=== PATIENT | male | born 1980 | race Two or more races ===

== ENCOUNTER 2022-01-21 07:35 | Emergency (ER) | payer SELFPAY ==
[~2022-01-21] VITALS: Ht 170.2 cm; Wt 63.5 kg
[2022-01-21 09:15] VITALS: BP 132/81
[2022-01-21] MEDS ORDERED: IBUPROFEN 600 MG TAB PO ONE (09:15)
== END 2022-01-21 09:18 ==
LOC: ER 07:35
DX: S93.401A Sprain of unspecified ligament of right ankle, initial encounter (principal); V43.52XA Car driver injured in collision with other type car in traffic accident, initial encounter; Y93.89 Activity, other specified; Y92.410 Unspecified street and highway as the place of occurrence of the external cause; Y99.8 Other external cause status
CPT/HCPCS: 73610

== ENCOUNTER 2022-03-25 13:42 | Emergency (ER) | payer SELFPAY ==
[~2022-03-25] VITALS: Ht 165.1 cm; Wt 70.1 kg
[2022-03-25 15:21] VITALS: BP 139/101
[2022-03-25] MEDS ORDERED: methylPREDNISolone SOD SUCC 125 MG/2 ML VL ONE (15:27)
[2022-03-25] MEDS ORDERED: cefTRIAXone SOD 1,000 MG VL IM ONE (15:30)
[2022-03-25] MEDS ORDERED: methylPREDNISolone SOD SUCC 125 MG/2 ML VL IM ONE (15:30)
== END 2022-03-25 15:50 | disposition home or self-care (01) ==
LOC: ER 13:42
DX: T78.40XA Allergy, unspecified, initial encounter (principal); E11.9 Type 2 diabetes mellitus without complications; X58.XXXA Exposure to other specified factors, initial encounter
CPT/HCPCS: 96372; 99284; J0696; J2930

== ENCOUNTER 2022-03-26 14:21 | Emergency (ER) | payer SELFPAY ==
[~2022-03-26] VITALS: Ht 167.6 cm; Wt 63.5 kg
[2022-03-26] MEDS ORDERED: methylPREDNISolone SOD SUCC 125 MG/2 ML VL IV ONE (15:15)
[2022-03-26] MEDS ORDERED: cefTRIAXone 1GM/50ML D5W 50 ML IV ONE (15:15)
[2022-03-26 15:41] VITALS: BP 131/81
[2022-03-26 16:09] LABS: Alcohol, Urine < 3.0 mg/dL (0-10); Amphetamine Screen, Urine NEGATIVE (NEGATIVE); Barbiturate Scree,Urine NEGATIVE (NEGATIVE); Benzodiazephine Screen, Urine NEGATIVE (NEGATIVE); Cannabinoid Screen, Urine POSITIVE (NEGATIVE); Opiate Scree,Urine NEGATIVE (NEGATIVE); Phencyclidine Screen, Urine NEGATIVE (NEGATIVE)
[2022-03-26 16:15] LABS: Cocaine Screen, Urine NEGATIVE (NEGATIVE)
[2022-03-27] MEDS ORDERED: CEPH500C PO (15:19)
[2022-03-27] MEDS ORDERED: NAPR500T31 PO (15:22)
== END 2022-03-26 16:33 | disposition home or self-care (01) ==
LOC: ER 14:21
DX: S41.151A Open bite of right upper arm, initial encounter (principal); F12.10 Cannabis abuse, uncomplicated; W57.XXXA Bitten or stung by nonvenomous insect and other nonvenomous arthropods, initial encounter; Y93.89 Activity, other specified; Y92.9 Unspecified place or not applicable; Y99.8 Other external cause status
CPT/HCPCS: 80307; 96365; 96375; 99284; J0696; J2930

== ENCOUNTER 2022-03-27 13:50 | Emergency (ER) | payer SELFPAY ==
[~2022-03-27] VITALS: Ht 170.2 cm; Wt 63.5 kg
[2022-03-27 14:09] VITALS: BP 136/87
[2022-03-27] MEDS ORDERED: cefTRIAXone 1GM/50ML D5W 50 ML IV ONE (15:15)
[2022-03-27] MEDS ORDERED: CEPH500C PO (15:19)
[2022-03-27] MEDS ORDERED: NAPR500T31 PO (15:22)
== END 2022-03-27 15:39 | disposition home or self-care (01) ==
LOC: ER 13:50
DX: T78.40XD Allergy, unspecified, subsequent encounter (principal); I89.1 Lymphangitis; F12.10 Cannabis abuse, uncomplicated; X58.XXXD Exposure to other specified factors, subsequent encounter
CPT/HCPCS: 96374; 99283; J0696

== ENCOUNTER 2023-10-28 09:30 | Emergency (ER) | payer SELFPAY ==
[~2023-10-28] VITALS: Ht 160 cm; Wt 73.4 kg
[~2023-10-28 09:30] MED LIST: CEPH500C PO; NAPR-746 PO
[2023-10-28 09:35] VITALS: BP 139/84
[2023-10-28] MEDS ORDERED: AUG875T PO (10:51)
[2023-10-28 11:15] VITALS: PULSE 69; RESP 18; O2SAT 98
[2023-10-28] MEDS ORDERED: HYDROcodone-ACET 5/325MG TAB PO ONE (11:15)
== END 2023-10-28 11:17 | disposition home or self-care (01) ==
LOC: ER 09:30
DX: M79.671 Pain in right foot (principal); F12.10 Cannabis abuse, uncomplicated
CPT/HCPCS: 93971

== ENCOUNTER 2023-11-10 13:45 | Emergency (ER) | payer MEDICAID ==
[~2023-11-10] VITALS: Ht 167.6 cm; Wt 70.0 kg
[~2023-11-10 13:45] MED LIST changes: +AUG875T PO
[2023-11-10 14:31] VITALS: BP 131/90; PULSE 80; RESP 16; O2SAT 99
== END 2023-11-10 16:39 | disposition left against medical advice (07) ==
LOC: ER 13:45
DX: M79.671 Pain in right foot (principal); Z53.21 Procedure and treatment not carried out due to patient leaving prior to being seen by health care provider

== ENCOUNTER 2023-12-02 14:23 | Emergency (ER) | payer MEDICAID ==
[~2023-12-02] VITALS: Ht 162.6 cm; Wt 72.9 kg
[2023-12-02] MEDS ORDERED: HYDROcodone-ACET 10/325MG TAB PO ONE (15:15)
[2023-12-02] MEDS ORDERED: IBUP-1455 PO (16:27)
[2023-12-02] MEDS ORDERED: HYDR-4902 PO (16:27)
[2023-12-02 16:50] VITALS: BP 176/99; PULSE 85; RESP 20; TEMP 98.7; O2SAT 97
== END 2023-12-02 16:54 | disposition home or self-care (01) ==
LOC: ER 14:23
DX: S92.32 Fracture of second metatarsal bone (principal); S92.33 Fracture of third metatarsal bone; Z79.2 Long term (current) use of antibiotics; Z79.899 Other long term (current) drug therapy; X58.XXXD Exposure to other specified factors, subsequent encounter
CPT/HCPCS: 73630; 93971

== ENCOUNTER 2023-12-21 13:31 | Emergency (ER) | payer MEDICAID ==
[~2023-12-21] VITALS: Ht 167.6 cm; Wt 74.2 kg
[~2023-12-21 13:31] MED LIST changes: +HYDR-4902 PO; +IBUP-1455 PO
[2023-12-21 14:39] VITALS: BP 137/87; PULSE 84; RESP 20; TEMP 97; O2SAT 97
[2023-12-21] MEDS ORDERED: MELO7.5T7 PO (15:56)
[2023-12-21] MEDS: KETOROLAC TROMETH 60MG/2ML VIAL IM ONE (16:10)
== END 2023-12-21 16:21 | disposition home or self-care (01) ==
LOC: ER 13:31
DX: M79.671 Pain in right foot (principal); F12.10 Cannabis abuse, uncomplicated; F10.10 Alcohol abuse, uncomplicated
CPT/HCPCS: 73630; 96372; 99283; J1885

== ENCOUNTER 2024-01-31 10:09 | Inpatient (IN) | payer MEDICAID ==
[~2024-01-31] VITALS: Ht 170.2 cm; Wt 77.1 kg
[~2024-01-31 10:09] MED LIST changes: +MELO7.5T7 PO
[2024-01-31 11:23] LABS: Basophils # (auto) 0 10 ^3/uL (0-0.2); Basophils % (auto) 0.3 % (0.0-2.0); Eosinophils # (auto) 0.1 10 ^3/uL (0-0.8); Eosinophils % (auto) 1.3 % (0.0-7.0); Hematocrit 44.7 % (41.0-53.0); Hemoglobin 15.2 g/dL (13.5-17.5); Lymphocytes # (auto) 1.7 10 ^3/uL (0.4-5.4); Lymphocytes % (auto) 28.9 % (10.0-50.0); Mean Corpuscular Hemoglobin 30.1 pg (28.0-32.0); Mean Corpuscular Volume 88.5 fL (80.0-100.0); Monocytes # (auto) 0.5 10 ^3/uL (0-1.3); Monocytes % (auto) 8.6 % (0.0-12.0); Neutrophils # (auto) 3.6 10 ^3/uL (1.6-8.6); Neutrophils % (auto) 60.9 % (37.0-80.0); Red Blood Cells 5.06 10^6/uL (4.5-5.90); Red Cell Distribution Width 13.3 % (11.8-14.3); White Blood Cell 5.8 10^3/uL (4.4-10.8)
[2024-01-31 11:28] LABS: Chloride 109 mmol/L (98-107); Potassium 4.2 mmol/L (3.5-5.1); Sodium 139 mmol/L (136-145)
[2024-01-31 11:29] LABS: Anion Gap 4 (5-15); Carbon Dioxide 26 mmol/L (20-30)
[2024-01-31 11:30] LABS: Calcium 9.9 mg/dL (8.5-10.1)
[2024-01-31 11:34] LABS: BUN/Creatinine Ratio 13.7 (10.0-20.0); Blood Urea Nitrogen 13 mg/dL (9-23); Glucose 95 mg/dL (74-106)
[2024-01-31] MEDS: ONDANSETRON HCL 4 MG/2 ML VIAL IV ONE (11:47)
[2024-01-31] MEDS: MORPHINE SULFATE 4 MG/ML SYR/VIAL IV ONE (11:47)
[2024-01-31] MEDS: KETOROLAC TROMETH 30 MG/ML 1ML VIAL IV ONE ×2 (11:48→21:58)
[2024-01-31] MEDS ORDERED: MORPHINE SULFATE INJ 2 MG/ml SYRG IV PRN (14:00)
[2024-01-31] MEDS ORDERED: ONDANSETRON HCL 4 MG/2 ML VIAL IV PRN (14:00)
[2024-01-31] MEDS ORDERED: DOCUSATE SOD 100 MG CAP PO PRN (14:00)
[2024-01-31] MEDS: SODIUM CHLORIDE 0.9% 1,000 ML IV SCH (17:49)
[2024-01-31] MEDS: cefTRIAXone 1GM/50ML D5W 50 ML IV ONE (17:49)
[2024-01-31] MEDS: MORPHINE SULFATE INJ 2 MG/ml SYRG IV ONE (17:50)
[2024-01-31] MEDS: KETOROLAC TROMETH 30 MG/ML 1ML VIAL IV SCH (18:00)
[2024-01-31] MEDS: TAMSULOSIN HYDROCHLORIDE 0.4 MG CAP PO SCH (18:06)
[2024-02-01 02:24] VITALS: BP 124/78; PULSE 85; RESP 17; TEMP 97.6; O2SAT 97
[2024-02-01 03:14] LABS: Urine Bacteria NONE SEEN /hpf (None Seen); Urine Blood 2+ /uL (Negative); Urine Clarity Clear (Clear); Urine Color Yellow (Yellow); Urine Mucus FEW (None Seen); Urine Protein, UAD TRACE (Negative); Urine Specific Gravity 1.017 (1.001-1.035); Urine Urobilinogen Normal (Negative); Urine WBC 7 /hpf (0 - 3); Urine pH 6.5 (5.0-9.0)
[2024-02-01] MEDS ORDERED: TAMS0.4C36 PO (03:33)
[2024-02-01] MEDS ORDERED: ACET-1881 PO (03:33)
[2024-02-01] MEDS ORDERED: METO10TA3 PO (03:33)
[2024-02-01 05:00] VITALS: BP 138/98; PULSE 76; RESP 16; TEMP 98; O2SAT 96
[2024-02-01 05:14] LABS: Basophils # (auto) 0 10 ^3/uL (0-0.2); Basophils % (auto) 0.2 % (0.0-2.0); Eosinophils # (auto) 0.1 10 ^3/uL (0-0.8); Hematocrit 41.2 % (41.0-53.0); Lymphocytes # (auto) 1.7 10 ^3/uL (0.4-5.4); Lymphocytes % (auto) 24.3 % (10.0-50.0); Mean Corpuscular Volume 88.2 fL (80.0-100.0); Monocytes # (auto) 0.7 10 ^3/uL (0-1.3); Monocytes % (auto) 9.6 % (0.0-12.0); Neutrophils # (auto) 4.5 10 ^3/uL (1.6-8.6); Neutrophils % (auto) 64.9 % (37.0-80.0); Nucleated Red Blood Cells % 0.1 %; Red Blood Cells 4.67 10^6/uL (4.5-5.90); Red Cell Distribution Width 13.3 % (11.8-14.3); White Blood Cell 6.9 10^3/uL (4.4-10.8)
[2024-02-01 05:32] LABS: Alanine Aminotransferase 15 U/L (7-40); Albumin 3.8 g/dL (3.2-4.8); Alkaline Phosphatase 119 U/L (46-116); Anion Gap 7 (5-15); BUN/Creatinine Ratio 15.6 (10.0-20.0); Bilirubin, Total 0.4 mg/dL (0.2-1.0); Blood Urea Nitrogen 17 mg/dL (9-23); Calcium 9.6 mg/dL (8.7-10.4); Carbon Dioxide 23 mmol/L (20-30); Chloride 109 mmol/L (98-107); Glucose 97 mg/dL (74-106); Potassium 3.9 mmol/L (3.5-5.1); Sodium 139 mmol/L (136-145); Total Protein 6.3 g/dL (5.7-8.2)
[2024-02-01 05:49] LABS: Aspartate Aminotransferase 12 U/L (13-40)
[2024-02-01] MEDS ORDERED: hydrALAZINE HCL 20 MG/ML VL IV PRN (08:15)
[2024-02-01 08:32] VITALS: BP 137/83; PULSE 82; RESP 20; TEMP 98.4; O2SAT 94
[2024-02-01 08:44] LABS: INR 1.02 (0.9-1.15); Prothrombin Time 10.7 sec (9.3-11.8)
[2024-02-01 08:57] LABS: Uric Acid 5.1 mg/dL (3.7-9.2)
[2024-02-01 08:58] LABS: Magnesium 1.9 mg/dL (1.6-2.6)
[2024-02-01] MEDS: cefTRIAXone 1GM/50ML D5W 50 ML IV SCH (09:42)
[2024-02-01] MEDS ORDERED: TAMS-35 PO (11:47)
[2024-02-01 12:33] VITALS: BP 142/94; PULSE 82; RESP 20; TEMP 98.1; O2SAT 96
== END 2024-02-01 15:49 | disposition home or self-care (01) | DRG 465 ==
LOC: ER 10:09 → OVERFLOW 15:52 → WEST WING 23:54
PROVIDERS: ADMIT Nurse Practitioner Family; ATTEND Internal Medicine
DX: N13.2 Hydronephrosis with renal and ureteral calculous obstruction (principal); F17.200 Nicotine dependence, unspecified, uncomplicated; K42.9 Umbilical hernia without obstruction or gangrene; N30.00 Acute cystitis without hematuria
CPT/HCPCS: 36415; 74176; 80048; 80053; 80061; 81001; 82306; 83735; 84443; 84550; 85025; 85610; 87086; 96374; 96375; 96376; G0378; J1885; J2405